=== PATIENT | male | born 1940 | race Caucasian/White ===

== ENCOUNTER 2020-07-14 10:48 | Inpatient (IN) | payer MEDICARE, OTHER ==
[2020-07-14] MEDS ORDERED: Nitroglycerin 0.4 MG Tab.SL SL PRN (17:11)
--- NOTE | 2020-07-14 17:47 | PCM.HP.2 ---
H&P History of Present Illness - General Date of Service: 07/14/20 Admit Problem/Dx: Admission Diagnosis/Problem Admission Diagnosis/Problem Coronary artery bypass grafting Source of Information: Patient, Old Records History Limitations: Reports: No Limitations - History of Present Illness Initial Comments - Free Text/Narative: This is a 71-year-old mac patient transfers from [facility] after he had double bypass surgery and valve replacement. He says he is doing well although he's had hiccups for the last 5 days. He says he thinks they use Thorazine and it has not helped. His chest pain is under control. He denies fevers, chills, Rales, shortness of breath, leg swelling or cough. - Related Data Allergies/Adverse Reactions: Allergies Allergy/AdvReac Type Severity Reaction Status Date / Time No Known Allergies Allergy Verified 01/30/14 19:14 Home Medications: Home Meds Ascorbic Acid [Vitamin C] 1,000 mg PO DAILY 01/30/14 [History] Aspirin 81 mg PO DAILY 01/30/14 [History] Fish Oil/[place]-3 Fatty Acids [Fish Oil 1,000 MG] 1 gm PO BID 01/30/14 [History] Insulin Glarg,Human.Rec.Analog [Lantus Solostar] 40 unit SQ DAILY 09/10/16 [History] metFORMIN [Glucophage] 500 mg PO BIDMEALS 09/10/16 [History] Albuterol [Ventolin HFA] 2 puff IH Q4H PRN 07/14/20 [History] Apixaban [Eliquis] 5 mg PO BID 07/14/20 [History] B12/Levomefolate Calcium/B-6 [Foltx Tablet] 1 tab PO DAILY 07/14/20 [History] Calcium Carbonate/Vitamin D3 [Calcium 600 + Vit D 200] 1 tab PO DAILY 07/14/20 [History] Digoxin 250 mcg PO DAILY 07/14/20 [History] Diltiazem [Cardizem CD] 120 mg PO DAILY 07/14/20 [History] Fluticasone Propionate [Flonase] 2 spray NASBOTH DAILY 07/14/20 [History] Furosemide [Lasix] 40 mg PO DAILY 07/14/20 [History] Insulin Aspart [NovoLOG] 10 units SUBCUT TIDMEALS 07/14/20 [History] Lactulose [Cephulac] 20 gm PO DAILY 07/14/20 [History] Metoprolol Succinate [Toprol Xl] 50 mg PO DAILY 07/14/20 [History] Nitroglycerin 0.4 mg SL Q5M PRN 07/14/20 [History] Pantoprazole Sodium [Protonix] 40 mg PO ACDINNER 07/14/20 [History] Potassium Chloride 40 meq PO ACDINNER 07/14/20 [History] Sennosides/Docusate Sodium [Senna-S] 2 ea PO BID 07/14/20 [History] atorvaSTATin [Lipitor] 40 mg PO WITHDINNER 07/14/20 [History] oxyCODONE 5 mg PO Q4H PRN 07/14/20 [History] polyethylene glycoL 3350 [MiraLAX] 17 gm PO BID 07/14/20 [History] Past Medical History HEENT History: Reports: Cataract, Other (See Below) Other HEENT History: Wears glasses. Has not had cataract surgery. Cardiovascular History: Reports: CAD, High Cholesterol, Hypertension, Stents Gastrointestinal History: Reports: GERD, Other (See Below) Other Gastrointestinal History: Uses Pepcid PRN. Takes Activia for regularity. Genitourinary History: Reports: Renal Calculus, Other (See Below) Other Genitourinary History: Recent kidney stone, treated with lithotripsy abd stent. This stent was then removed on 09-10-16. Also had a kidney stone 35 years ago. 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 Oncologic (Cancer) History: Reports: Lung, Other (See Below) Other Oncologic History: Recent chemotherapy and radiation for lung CA. Dermatologic History: Reports: Other (See Below) Other Dermatologic History: Moles on back. - Infectious Disease History Infectious Disease History: Reports: Chicken Pox, Rubella, Shingles Other Infectious Disease History: States he was place in Precautions following Triple A repair when, patient is uncertain if he had an infection or not. - Past Surgical History Cardiovascular Surgical History: Reports: AAA Repair, Coronary Artery Stent Respiratory Surgical History: Reports: Lung Biopsies, Other (See Below) Musculoskeletal Surgical History: Reports: Knee Replacement Social & Family History - Caffeine Use Caffeine Use: Reports: Coffee H&P Review of Systems - Review of Systems: Review Of Systems: See Below General: Reports: No Symptoms HEENT: Reports: No Symptoms Pulmonary: Reports: No Symptoms Cardiovascular: Reports: No Symptoms Gastrointestinal: Reports: Other (hiccups otherwise denied) Genitourinary: Reports: No Symptoms Musculoskeletal: Reports: No Symptoms Skin: Reports: No Symptoms Psychiatric: Reports: No Symptoms Neurological: Reports: No Symptoms Hematologic/Lymphatic: Reports: No Symptoms Immunologic: Reports: No Symptoms Exam - Exam Exam: See Below - Exam General: Alert, Oriented, Cooperative HEENT: PERRLA, Hearing Intact, Posterior Pharynx Clear, TMs Clear Neck: Supple, Trachea Midline Lungs: Clear to Auscultation, Normal Respiratory Effort. No: Crackles, Rales, Rhonchi Cardiovascular: Regular Rate, Regular Rhythm. No: Systolic Murmur GI/Abdominal Exam: Normal Bowel Sounds, Soft, Non-Tender, No Organomegaly, No Distention Back Exam: Normal Inspection, Full Range of Motion Extremities: Normal Inspection, Non-Tender, No Pedal Edema Skin: Warm Neurological: Normal Gait, Normal Speech Neuro Extensive - Mental Status: Alert, Oriented x3, Normal Mood/Affect, Normal Cognition Psychiatric: Alert, Normal Affect, Normal Mood - Problem List (1) S/P CABG x 2 SNOMED Code(s): 934170662, 263280726, 726876649 ICD Code: Z95.1 - PRESENCE OF AORTOCORONARY BYPASS GRAFT Status: Acute Current Visit: Yes (2) Physical deconditioning SNOMED Code(s): 23519078914046 ICD Code: R53.81 - OTHER MALAISE Status: Acute Current Visit: Yes (3) ASVD (arteriosclerotic vascular disease) SNOMED Code(s): 62463791 ICD Code: I70.90 - UNSPECIFIED ATHEROSCLEROSIS Status: Acute Current Visit: No (4) Diabetes mellitus SNOMED Code(s): 96774387 ICD Code: E11.9 - TYPE 2 DIABETES MELLITUS WITHOUT COMPLICATIONS Status: Acute Current Visit: No (5) Hiccups SNOMED Code(s): 79253750 ICD Code: R06.6 - HICCOUGH Status: Acute Current Visit: Yes Problem List Initiated/Reviewed/Updated: Yes Orders Last 24hrs: Active Orders 24 hr Category Date Time Status Patient Status [ADT] Routine ADT 07/14/20 16:35 Active Blood Glucose Check, Bedside [RC] QIDACANDBED Care 07/14/20 16:35 Active Oxygen Therapy [RC] PRN Care 07/14/20 16:35 Active RT Post Treatment Assessment [RC] Click to Edit Care 07/14/20 17:13 Active Up ad Shamika [RC] ASDIRECTED Care 07/14/20 16:35 Active VTE/DVT Education [RC] Per Unit Routine Care 07/14/20 16:35 Active Vital Signs [RC] Q4H Care 07/14/20 16:35 Active OT Evaluation and Treatment [CONS] Routine Cons 07/14/20 16:35 Active PT Evaluation and Treatment [CONS] Routine Cons 07/14/20 16:35 Active Consistent Carbohydrate Diet [DIET] Diet 07/14/20 Dinner Active Albuterol [Ventolin HFA] Med 07/14/20 17:11 Active 0 gm INH Q4H PRN Apixaban [Eliquis] Med 07/14/20 21:00 Active 5 mg PO BID Ascorbic Acid [Vitamin C] Med 07/15/20 09:00 Active 1,000 mg PO DAILY Aspirin Med 07/15/20 09:00 Active 81 mg PO DAILY Calcium Carbonate [Oyster Shell Calcium] Med 07/15/20 09:00 Active 500 mg PO DAILY Cyanocobalamin (Vitamin B12) [Vitamin B12] Med 07/15/20 09:00 Active 2,000 mcg PO DAILY Digoxin [Lanoxin] Med 07/15/20 09:00 Active 250 mcg PO DAILY Diltiazem [Cardizem CD] Med 07/15/20 09:00 Active 120 mg PO DAILY Docusate Sodium/Sennosides [Senna Plus] Med 07/14/20 21:00 Active 2 tab PO BID Fish Oil/[place]-3 Fatty Acids [Fish Oil] Med 07/14/20 21:00 Active 1 gm PO BID Fluticasone Propionate [Flonase] Med 07/15/20 09:00 Active 0 gm NASBOTH DAILY PRN Folic Acid Med 07/15/20 09:00 Active 2 mg PO DAILY Furosemide [Lasix] Med 07/15/20 09:00 Active 40 mg PO DAILY Insulin Glarg,Human.Rec.Analog [LantUS Solostar] Med 07/15/20 09:00 Active 40 units SUBCUT DAILY Lactulose [Cephulac] Med 07/15/20 09:00 Active 20 gm PO DAILY Metoprolol Succinate [Toprol XL] Med 07/15/20 09:00 Active 50 mg PO DAILY Nitroglycerin [Nitrostat] Med 07/14/20 17:11 Active 0.4 mg SL Q5M PRN Pantoprazole [ProTONIX] Med 07/14/20 17:30 Active 40 mg PO ACDINNER Potassium Chloride [Klor-Con M20] Med 07/14/20 17:30 Active 40 meq PO ACDINNER Vitamin B6-pyridOXINE Med 07/15/20 09:00 Active 25 mg PO DAILY atorvaSTATin [Lipitor] Med 07/14/20 18:00 Active 40 mg PO WITHDINNER metFORMIN [Glucophage] Med 07/14/20 18:00 Active 500 mg PO BIDMEALS oxyCODONE Med 07/14/20 17:11 Active 5 mg PO Q4H PRN polyethylene glycoL 3350 [MiraLAX] Med 07/14/20 21:00 Active 17 gm PO BID Resuscitation Status Routine Resus Stat 07/14/20 16:35 Ordered Medication Orders Albuterol (Ventolin Hfa) 0 gm INH Q4H PRN PRN Reason: cough/wheeze/short of breath Apixaban (Eliquis) 5 mg PO BID [facility] Ascorbic Acid (Vitamin C) 1,000 mg PO DAILY [facility] Aspirin (Aspirin) 81 mg PO DAILY [facility] Atorvastatin Calcium (Lipitor) 40 mg PO WITHDINNER [facility] Calcium Carbonate/Glycine (Oyster Shell Calcium) 500 mg PO DAILY [facility] Cyanocobalamin (Vitamin B12) 2,000 mcg PO DAILY [facility] Digoxin (Lanoxin) 250 mcg PO DAILY [facility] Diltiazem HCl (Cardizem Cd) 120 mg PO DAILY [facility] Fish Oil (Fish Oil) 1 gm PO BID [facility] Fluticasone Propionate (Flonase) 0 gm NASBOTH DAILY PRN PRN Reason: ALLERGIES Folic Acid (Folic Acid) 2 mg PO DAILY [facility] Furosemide (Lasix) 40 mg PO DAILY [facility] Insulin Glargine (Lantus Solostar) 40 units SUBCUT DAILY [facility] Lactulose (Cephulac) 20 gm PO DAILY [facility] Metformin HCl (Glucophage) 500 mg PO BIDMEALS [facility] Metoprolol Succinate (Toprol Xl) 50 mg PO DAILY [facility] Nitroglycerin (Nitrostat) 0.4 mg SL Q5M PRN PRN Reason: Chest Pain Oxycodone HCl (Oxycodone) 5 mg PO Q4H PRN PRN Reason: Pain Pantoprazole Sodium (Protonix) 40 mg PO ACDINNER [facility] Polyethylene Glycol (Miralax) 17 gm PO BID [facility] Potassium Chloride (Klor-Con M20) 40 meq PO ACDINNER [facility] Pyridoxine HCl (Vitamin B6-Pyridoxine) 25 mg PO DAILY [facility] Senna/Docusate Sodium (Senna Plus) 2 tab PO BID [facility] Assessment/Plan Comment:: 1. Admit to swing bed. 2. Full code per patient 3. Diabetes diet with Accu-Cheks 4 times a day until we know his blood sugars levels will be 4. Start his long-acting insulin and hold the short acting insulin. Restart metformin. 5. PT/OT 6. No labs needed, no x-rays needed 7. Up ad shamika. 8. Gabapentin 4 hiccups - Mortality Measure Prognosis:: Good
[2020-07-14] MEDS ORDERED: Non-Formulary Medication 1 Each (Insulin Aspart [Novolog] 10 UNITS) SUBCUT SCH (18:00)
[2020-07-14] MEDS: metFORMIN 500 MG Tab PO SCH (19:08)
[2020-07-14] MEDS: Potassium Chloride 20 MEQ Tab.ER PO SCH (19:09)
[2020-07-14] MEDS: atorvaSTATin 40 MG Tab PO SCH (19:09)
[2020-07-14] MEDS: Pantoprazole 40 MG Tab.CR PO SCH (19:09)
[2020-07-14] MEDS: oxyCODONE 5 MG Tab PO PRN (19:16)
[2020-07-14] MEDS: Fish Oil/Omega-3 Fatty Acids 1 Gm Cap PO SCH (20:15)
[2020-07-14] MEDS: Polyethylene Glycol 3350 Powder 17 GM Packet PO SCH (20:15)
[2020-07-14] MEDS: Apixaban 5 MG Tab PO SCH (20:15)
[2020-07-14] MEDS: Gabapentin 100 MG Cap PO SCH (21:16)
[2020-07-15] MEDS: oxyCODONE 5 MG Tab PO PRN ×5 (00:55→21:25)
[2020-07-15] MEDS: Albuterol 8 GM Inhaler INH PRN ×4 (05:32→21:25)
[2020-07-15] MEDS: Aspirin 81 MG Tab.Chew PO SCH (08:13)
[2020-07-15] MEDS: metFORMIN 500 MG Tab PO SCH ×2 (08:13→17:17)
[2020-07-15] MEDS: Diltiazem 120 MG Cap.CD PO SCH (08:14)
[2020-07-15] MEDS: Lactulose Soln 10 GM/15 ML 30 ML UD Cup PO SCH (08:14)
[2020-07-15] MEDS: Fish Oil/Omega-3 Fatty Acids 1 Gm Cap PO SCH ×2 (08:15→20:27)
[2020-07-15] MEDS: Apixaban 5 MG Tab PO SCH ×2 (08:15→20:27)
[2020-07-15] MEDS: Folic Acid 1 MG Tab PO SCH (08:15)
[2020-07-15] MEDS: Furosemide 40 MG Tab PO SCH (08:16)
[2020-07-15] MEDS: Polyethylene Glycol 3350 Powder 17 GM Packet PO SCH ×2 (08:16→20:26)
[2020-07-15] MEDS: Digoxin 125 MCG Tab PO SCH (08:16)
[2020-07-15] MEDS: Gabapentin 100 MG Cap PO SCH ×3 (08:17→20:26)
[2020-07-15] MEDS: Metoprolol Succinate 50 MG Tab.ER PO SCH (08:20)
[2020-07-15] MEDS: Ascorbic Acid 500 MG Tab PO SCH (08:21)
[2020-07-15] MEDS: Vitamin B6-pyridOXINE 100 MG Tab PO SCH (08:21)
[2020-07-15] MEDS: Cyanocobalamin (Vitamin B12) 1,000 MCG Tab PO SCH (08:21)
[2020-07-15] MEDS ORDERED: Insulin Glargine,Human Rec. Analog 100 Units/ML 3 ML Pen SUBCUT ONE (08:24)
[2020-07-15] MEDS: Calcium Carbonate 500 MG Tablet PO SCH (08:25)
[2020-07-15] MEDS: Insulin Glargine,Human Rec. Analog 100 Units/ML 3 ML Pen SUBCUT SCH (08:25)
[2020-07-15] MEDS ORDERED: Folic Acid 1 MG Tab PO SCH (09:00)
[2020-07-15] MEDS ORDERED: Vitamin B6-pyridOXINE 100 MG Tab PO SCH (09:00)
[2020-07-15] MEDS ORDERED: B12 PO SCH (09:00)
[2020-07-15] MEDS ORDERED: Cyanocobalamin (Vitamin B12) 1,000 MCG Tab PO SCH (09:00)
[2020-07-15] MEDS ORDERED: LEVOMEFOLATE CALCIUM PO SCH (09:00)
[2020-07-15] MEDS ORDERED: Fluticasone Propionate Nasal Spray 16 GM Bottle NASBOTH PRN (09:00)
[2020-07-15] MEDS ORDERED: B6 PO SCH (09:00)
[2020-07-15] MEDS: Potassium Chloride 20 MEQ Tab.ER PO SCH (17:16)
[2020-07-15] MEDS: atorvaSTATin 40 MG Tab PO SCH (17:16)
[2020-07-15] MEDS: Pantoprazole 40 MG Tab.CR PO SCH (17:16)
[2020-07-16] MEDS: oxyCODONE 5 MG Tab PO PRN ×5 (01:28→20:29)
[2020-07-16] MEDS: Albuterol 8 GM Inhaler INH PRN ×3 (01:28→23:10)
--- NOTE | 2020-07-16 07:57 | PCM.PN ---
- General Info Date of Service: 07/16/20 Admission Dx/Problem (Free Text): Patient states he is doing well. Has a little bit chest pain when he coughs. Denies shortness breath, wheezing, fevers, chills still has some hiccups - Patient Data Vitals - Most Recent: Last Vital Signs Temp 97.1 F 07/15/20 05:21 Pulse 95 07/15/20 08:20 Resp 18 07/15/20 05:21 BP 113/56 L 07/15/20 08:20 Pulse Ox 94 L 07/15/20 05:21 Weight - Most Recent: 243 lb 3 oz Lab Results Last 24 Hours: Laboratory Results - last 24 hr 07/15/20 07/15/20 07/15/20 Range/Units 11:18 17:19 20:37 POC Glucose 195 H 153 H 187 H (74-100) mg/dL Med Orders - Current: Current Medications Albuterol (Ventolin Hfa) 0 gm INH Q4H PRN PRN Reason: cough/wheeze/short of breath Last Admin: 07/16/20 06:17 Dose: 2 puff Documented by: Apixaban (Eliquis) 5 mg PO BID [facility] Last Admin: 07/15/20 20:27 Dose: 5 mg Documented by: Ascorbic Acid (Vitamin C) 1,000 mg PO DAILY [facility] Last Admin: 07/15/20 08:21 Dose: 1,000 mg Documented by: Aspirin (Aspirin) 81 mg PO DAILY [facility] Last Admin: 07/15/20 08:13 Dose: 81 mg Documented by: Atorvastatin Calcium (Lipitor) 40 mg PO WITHDINNER [facility] Last Admin: 07/15/20 17:16 Dose: 40 mg Documented by: Calcium Carbonate/Glycine (Oyster Shell Calcium) 500 mg PO DAILY [facility] Last Admin: 07/15/20 08:25 Dose: 500 mg Documented by: Cyanocobalamin (Vitamin B12) 2,000 mcg PO DAILY [facility] Last Admin: 07/15/20 08:21 Dose: 2,000 mcg Documented by: Digoxin (Lanoxin) 250 mcg PO DAILY [facility] Last Admin: 07/15/20 08:16 Dose: 250 mcg Documented by: Diltiazem HCl (Cardizem Cd) 120 mg PO DAILY [facility] Last Admin: 07/15/20 08:14 Dose: 120 mg Documented by: Fish Oil (Fish Oil) 1 gm PO BID [facility] Last Admin: 07/15/20 20:27 Dose: 1 gm Documented by: Fluticasone Propionate (Flonase) 0 gm NASBOTH DAILY PRN PRN Reason: ALLERGIES Folic Acid (Folic Acid) 2 mg PO DAILY [facility] Last Admin: 07/15/20 08:15 Dose: 2 mg Documented by: Furosemide (Lasix) 40 mg PO DAILY [facility] Last Admin: 07/15/20 08:16 Dose: 40 mg Documented by: Gabapentin (Neurontin) 100 mg PO TID [facility] Last Admin: 07/15/20 20:26 Dose: 100 mg Documented by: Insulin Glargine (Lantus Solostar) 40 units SUBCUT DAILY [facility] Last Admin: 07/15/20 08:25 Dose: 40 unit Documented by: Lactulose (Cephulac) 20 gm PO DAILY [facility] Last Admin: 07/15/20 08:14 Dose: 20 gm Documented by: Metformin HCl (Glucophage) 500 mg PO BIDMEALS [facility] Last Admin: 07/15/20 17:17 Dose: 500 mg Documented by: Metoprolol Succinate (Toprol Xl) 50 mg PO DAILY [facility] Last Admin: 07/15/20 08:20 Dose: 50 mg Documented by: Nitroglycerin (Nitrostat) 0.4 mg SL Q5M PRN PRN Reason: Chest Pain Oxycodone HCl (Oxycodone) 5 mg PO Q4H PRN PRN Reason: Pain Last Admin: 07/16/20 06:16 Dose: 5 mg Documented by: Pantoprazole Sodium (Protonix) 40 mg PO ACDINNER [facility] Last Admin: 07/15/20 17:16 Dose: 40 mg Documented by: Polyethylene Glycol (Miralax) 17 gm PO BID [facility] Last Admin: 07/15/20 20:26 Dose: 17 gm Documented by: Potassium Chloride (Klor-Con M20) 40 meq PO ACDINNER [facility] Last Admin: 07/15/20 17:16 Dose: 40 meq Documented by: Pyridoxine HCl (Vitamin B6-Pyridoxine) 25 mg PO DAILY [facility] Last Admin: 07/15/20 08:21 Dose: 25 mg Documented by: Senna/Docusate Sodium (Senna Plus) 2 tab PO BID [facility] Last Admin: 07/15/20 20:26 Dose: 2 tab Documented by: - Exam General: Alert, Oriented, Cooperative Lungs: Clear to Auscultation, Normal Respiratory Effort Cardiovascular: Regular Rate, Regular Rhythm, No Murmurs Extremities: No Pedal Edema Skin: Other (Chest wound healing nicely) Sepsis Event Note - Evaluation Sepsis Screening Result: No Definite Risk - Problem List & Annotations (1) S/P CABG x 2 SNOMED Code(s): 110261349, 722490457, 539328885 Code(s): Z95.1 - PRESENCE OF AORTOCORONARY BYPASS GRAFT Status: Acute Current Visit: Yes (2) Physical deconditioning SNOMED Code(s): 71611842095558 Code(s): R53.81 - OTHER MALAISE Status: Acute Current Visit: Yes (3) ASVD (arteriosclerotic vascular disease) SNOMED Code(s): 49122054 Code(s): I70.90 - UNSPECIFIED ATHEROSCLEROSIS Status: Acute Current Visit: No (4) Diabetes mellitus SNOMED Code(s): 98817116 Code(s): E11.9 - TYPE 2 DIABETES MELLITUS WITHOUT COMPLICATIONS Status: Acute Current Visit: No (5) Hiccups SNOMED Code(s): 16042085 Code(s): R06.6 - HICCOUGH Status: Acute Current Visit: Yes - Problem List Review Problem List Initiated/Reviewed/Updated: Yes - My Orders Last 24 Hours: My Active Orders 07/15/20 09:00 Ascorbic Acid [Vitamin C] 1,000 mg PO DAILY Aspirin 81 mg PO DAILY Calcium Carbonate [Oyster Shell Calcium] 500 mg PO DAILY Cyanocobalamin (Vitamin B12) [Vitamin B12] 2,000 mcg PO DAILY Digoxin [Lanoxin] 250 mcg PO DAILY Diltiazem [Cardizem CD] 120 mg PO DAILY Fluticasone Propionate [Flonase] 0 gm NASBOTH DAILY PRN Folic Acid 2 mg PO DAILY Furosemide [Lasix] 40 mg PO DAILY Insulin Glarg,Human.Rec.Analog [LantUS Solostar] 40 units SUBCUT DAILY Lactulose [Cephulac] 20 gm PO DAILY Metoprolol Succinate [Toprol XL] 50 mg PO DAILY Vitamin B6-pyridOXINE 25 mg PO DAILY - Plan Plan:: 1. Continue current care.
[2020-07-16] MEDS: metFORMIN 500 MG Tab PO SCH ×2 (09:16→17:39)
[2020-07-16] MEDS: Diltiazem 120 MG Cap.CD PO SCH (09:16)
[2020-07-16] MEDS: Aspirin 81 MG Tab.Chew PO SCH (09:16)
[2020-07-16] MEDS: Apixaban 5 MG Tab PO SCH ×2 (09:17→20:22)
[2020-07-16] MEDS: Fish Oil/Omega-3 Fatty Acids 1 Gm Cap PO SCH ×2 (09:17→20:23)
[2020-07-16] MEDS: Folic Acid 1 MG Tab PO SCH (09:17)
[2020-07-16] MEDS: Lactulose Soln 10 GM/15 ML 30 ML UD Cup PO SCH (09:17)
[2020-07-16] MEDS: Polyethylene Glycol 3350 Powder 17 GM Packet PO SCH ×2 (09:18→20:23)
[2020-07-16] MEDS: Digoxin 125 MCG Tab PO SCH (09:18)
[2020-07-16] MEDS: Furosemide 40 MG Tab PO SCH (09:18)
[2020-07-16] MEDS: Metoprolol Succinate 50 MG Tab.ER PO SCH (09:19)
[2020-07-16] MEDS: Cyanocobalamin (Vitamin B12) 1,000 MCG Tab PO SCH (09:20)
[2020-07-16] MEDS: Vitamin B6-pyridOXINE 100 MG Tab PO SCH (09:20)
[2020-07-16] MEDS: Ascorbic Acid 500 MG Tab PO SCH (09:21)
[2020-07-16] MEDS: Insulin Glargine,Human Rec. Analog 100 Units/ML 3 ML Pen SUBCUT SCH (09:21)
[2020-07-16] MEDS: Calcium Carbonate 500 MG Tablet PO SCH (09:33)
[2020-07-16] MEDS: Gabapentin 100 MG Cap PO SCH ×3 (09:33→20:29)
[2020-07-16] MEDS: Pantoprazole 40 MG Tab.CR PO SCH (17:39)
[2020-07-16] MEDS: atorvaSTATin 40 MG Tab PO SCH (17:40)
[2020-07-16] MEDS: Potassium Chloride 20 MEQ Tab.ER PO SCH (17:43)
[2020-07-17] MEDS: oxyCODONE 5 MG Tab PO PRN ×4 (02:47→20:41)
[2020-07-17] MEDS: Albuterol 8 GM Inhaler INH PRN ×2 (05:20→21:39)
[2020-07-17] MEDS: Aspirin 81 MG Tab.Chew PO SCH (08:29)
[2020-07-17] MEDS: Diltiazem 120 MG Cap.CD PO SCH (08:29)
[2020-07-17] MEDS: Fish Oil/Omega-3 Fatty Acids 1 Gm Cap PO SCH ×2 (08:31→20:39)
[2020-07-17] MEDS: Apixaban 5 MG Tab PO SCH ×2 (08:31→20:39)
[2020-07-17] MEDS: Polyethylene Glycol 3350 Powder 17 GM Packet PO SCH ×2 (08:31→20:40)
[2020-07-17] MEDS: Folic Acid 1 MG Tab PO SCH (08:31)
[2020-07-17] MEDS: Digoxin 125 MCG Tab PO SCH (08:32)
[2020-07-17] MEDS: Furosemide 40 MG Tab PO SCH (08:32)
[2020-07-17] MEDS: metFORMIN 500 MG Tab PO SCH ×2 (08:33→17:54)
[2020-07-17] MEDS: Cyanocobalamin (Vitamin B12) 1,000 MCG Tab PO SCH (08:34)
[2020-07-17] MEDS: Ascorbic Acid 500 MG Tab PO SCH (08:36)
[2020-07-17] MEDS: Vitamin B6-pyridOXINE 100 MG Tab PO SCH (08:36)
[2020-07-17] MEDS: Gabapentin 100 MG Cap PO SCH ×3 (08:45→20:40)
[2020-07-17] MEDS: Metoprolol Succinate 50 MG Tab.ER PO SCH (08:50)
[2020-07-17] MEDS: Lactulose Soln 10 GM/15 ML 30 ML UD Cup PO SCH (08:51)
[2020-07-17] MEDS: Insulin Glargine,Human Rec. Analog 100 Units/ML 3 ML Pen SUBCUT SCH (08:51)
[2020-07-17] MEDS: Calcium Carbonate 500 MG Tablet PO SCH (09:08)
[2020-07-17] MEDS: Pantoprazole 40 MG Tab.CR PO SCH (17:54)
[2020-07-17] MEDS: Potassium Chloride 20 MEQ Tab.ER PO SCH (17:56)
[2020-07-17] MEDS: atorvaSTATin 40 MG Tab PO SCH (18:08)
[2020-07-18] MEDS: oxyCODONE 5 MG Tab PO PRN ×4 (03:50→21:31)
--- NOTE | 2020-07-18 08:24 | PCM.PN ---
- General Info Date of Service: 07/18/20 Admission Dx/Problem (Free Text): Patient states she's having increasing swelling in his legs. Hospital but shortness of breath. This morning he had a cough with clear phlegm. He has no fevers, chills. - Patient Data Vitals - Most Recent: Last Vital Signs Temp 98.1 F 07/17/20 08:00 Pulse 77 07/17/20 14:18 Resp 20 07/17/20 14:18 BP 132/74 07/17/20 14:18 Pulse Ox 93 L 07/18/20 03:55 Weight - Most Recent: 243 lb 8 oz Lab Results Last 24 Hours: Laboratory Results - last 24 hr 07/17/20 07/17/20 07/17/20 Range/Units 11:39 16:54 20:34 POC Glucose 110 H 112 H 189 H (74-100) mg/dL Med Orders - Current: Current Medications Albuterol (Ventolin Hfa) 0 gm INH Q4H PRN PRN Reason: cough/wheeze/short of breath Last Admin: 07/17/20 21:39 Dose: 2 puff Documented by: Apixaban (Eliquis) 5 mg PO BID [facility] Last Admin: 07/17/20 20:39 Dose: 5 mg Documented by: Ascorbic Acid (Vitamin C) 1,000 mg PO DAILY [facility] Last Admin: 07/17/20 08:36 Dose: 1,000 mg Documented by: Aspirin (Aspirin) 81 mg PO DAILY [facility] Last Admin: 07/17/20 08:29 Dose: 81 mg Documented by: Atorvastatin Calcium (Lipitor) 40 mg PO WITHDINNER [facility] Last Admin: 07/17/20 18:08 Dose: 40 mg Documented by: Calcium Carbonate/Glycine (Oyster Shell Calcium) 500 mg PO DAILY [facility] Last Admin: 07/17/20 09:08 Dose: 500 mg Documented by: Cyanocobalamin (Vitamin B12) 2,000 mcg PO DAILY [facility] Last Admin: 07/17/20 08:34 Dose: 2,000 mcg Documented by: Digoxin (Lanoxin) 250 mcg PO DAILY [facility] Diltiazem HCl (Cardizem Cd) 120 mg PO DAILY [facility] Last Admin: 07/17/20 08:29 Dose: 120 mg Documented by: Fish Oil (Fish Oil) 1 gm PO BID [facility] Last Admin: 07/17/20 20:39 Dose: 1 gm Documented by: Fluticasone Propionate (Flonase) 0 gm NASBOTH DAILY PRN PRN Reason: ALLERGIES Folic Acid (Folic Acid) 2 mg PO DAILY [facility] Last Admin: 07/17/20 08:31 Dose: 2 mg Documented by: Furosemide (Lasix) 40 mg PO BID [facility] Gabapentin (Neurontin) 100 mg PO TID [facility] Last Admin: 07/17/20 20:40 Dose: 100 mg Documented by: Insulin Glargine (Lantus Solostar) 40 units SUBCUT DAILY [facility] Last Admin: 07/17/20 08:51 Dose: 40 unit Documented by: Lactulose (Cephulac) 20 gm PO DAILY [facility] Last Admin: 07/17/20 08:51 Dose: 20 gm Documented by: Metformin HCl (Glucophage) 500 mg PO BIDMEALS [facility] Last Admin: 07/17/20 17:54 Dose: 500 mg Documented by: Metoprolol Succinate (Toprol Xl) 50 mg PO DAILY [facility] Last Admin: 07/17/20 08:50 Dose: 50 mg Documented by: Nitroglycerin (Nitrostat) 0.4 mg SL Q5M PRN PRN Reason: Chest Pain Oxycodone HCl (Oxycodone) 5 mg PO Q4H PRN PRN Reason: Pain Last Admin: 07/18/20 03:50 Dose: 5 mg Documented by: Pantoprazole Sodium (Protonix) 40 mg PO ACDINNER [facility] Last Admin: 07/17/20 17:54 Dose: 40 mg Documented by: Polyethylene Glycol (Miralax) 17 gm PO BID [facility] Last Admin: 07/17/20 20:40 Dose: 17 gm Documented by: Potassium Chloride (Klor-Con M20) 40 meq PO ACDINNER [facility] Last Admin: 07/17/20 17:56 Dose: 40 meq Documented by: Pyridoxine HCl (Vitamin B6-Pyridoxine) 25 mg PO DAILY [facility] Last Admin: 07/17/20 08:36 Dose: 25 mg Documented by: Senna/Docusate Sodium (Senna Plus) 2 tab PO BID [facility] Last Admin: 07/17/20 20:41 Dose: Not Given Documented by: Discontinued Medications Digoxin (Lanoxin) 250 mcg PO DAILY [facility] Last Admin: 07/17/20 08:32 Dose: 250 mcg Documented by: Furosemide (Lasix) 40 mg PO DAILY [facility] Last Admin: 07/17/20 08:32 Dose: 40 mg Documented by: - Exam General: Alert, Oriented Lungs: Normal Respiratory Effort, Decreased Breath Sounds. No: Crackles, Rales, Rhonchi Cardiovascular: Regular Rate, Regular Rhythm, No Murmurs Extremities: Pedal Edema Sepsis Event Note - Evaluation Sepsis Screening Result: No Definite Risk - Focused Exam Vital Signs: Vital Signs Pulse Ox 07/18/20 03:55 93 L - Problem List & Annotations (1) S/P CABG x 2 SNOMED Code(s): 839645113, 815006858, 637026595 Code(s): Z95.1 - PRESENCE OF AORTOCORONARY BYPASS GRAFT Status: Acute Current Visit: Yes (2) Physical deconditioning SNOMED Code(s): 32529845578410 Code(s): R53.81 - OTHER MALAISE Status: Acute Current Visit: Yes (3) ASVD (arteriosclerotic vascular disease) SNOMED Code(s): 76847956 Code(s): I70.90 - UNSPECIFIED ATHEROSCLEROSIS Status: Acute Current Visit: No (4) Diabetes mellitus SNOMED Code(s): 98813291 Code(s): E11.9 - TYPE 2 DIABETES MELLITUS WITHOUT COMPLICATIONS Status: Acute Current Visit: No (5) Hiccups SNOMED Code(s): 87909483 Code(s): R06.6 - HICCOUGH Status: Acute Current Visit: Yes (6) Peripheral edema SNOMED Code(s): 776311570 Code(s): R60.9 - EDEMA, UNSPECIFIED Status: Acute Current Visit: Yes - Problem List Review Problem List Initiated/Reviewed/Updated: Yes - My Orders Last 24 Hours: My Active Orders 07/18/20 08:22 CXR [Chest 2V] [CR] Routine CBC WITH AUTO DIFF [HEME] Routine 07/18/20 09:00 Digoxin [Lanoxin] 250 mcg PO DAILY Furosemide [Lasix] 40 mg PO BID - Plan Plan:: 1. Increase the Lasix to twice a day. 2. Check CBC and chest x-ray today.
[2020-07-18] MEDS: metFORMIN 500 MG Tab PO SCH ×2 (09:00→17:00)
[2020-07-18] MEDS: Aspirin 81 MG Tab.Chew PO SCH (09:31)
[2020-07-18] MEDS: Diltiazem 120 MG Cap.CD PO SCH (09:32)
[2020-07-18] MEDS: Lactulose Soln 10 GM/15 ML 30 ML UD Cup PO SCH (09:32)
[2020-07-18] MEDS: Apixaban 5 MG Tab PO SCH ×2 (09:33→21:29)
[2020-07-18] MEDS: Fish Oil/Omega-3 Fatty Acids 1 Gm Cap PO SCH ×2 (09:33→21:29)
[2020-07-18] MEDS: Folic Acid 1 MG Tab PO SCH (09:33)
[2020-07-18] MEDS: Insulin Glargine,Human Rec. Analog 100 Units/ML 3 ML Pen SUBCUT SCH (09:34)
[2020-07-18] MEDS: Digoxin 250 MCG Tab PO SCH (09:34)
[2020-07-18] MEDS: Polyethylene Glycol 3350 Powder 17 GM Packet PO SCH ×2 (09:36→21:29)
[2020-07-18] MEDS: Furosemide 40 MG Tab PO SCH ×2 (09:36→13:11)
[2020-07-18] MEDS: Gabapentin 100 MG Cap PO SCH ×3 (09:38→21:29)
[2020-07-18] MEDS: Calcium Carbonate 500 MG Tablet PO SCH (09:40)
[2020-07-18] MEDS: Metoprolol Succinate 50 MG Tab.ER PO SCH (09:42)
[2020-07-18] MEDS: Cyanocobalamin (Vitamin B12) 1,000 MCG Tab PO SCH (09:43)
[2020-07-18] MEDS: Vitamin B6-pyridOXINE 100 MG Tab PO SCH (09:44)
[2020-07-18] MEDS: Ascorbic Acid 500 MG Tab PO SCH (09:44)
--- NOTE | 2020-07-18 11:32 | CR ---
INDICATION: Short of breath/history of double bypass and valve replacement 07/06/20. CHEST, 1 VIEW: A single, frontal view of the chest was obtained 07/18/20 and compared with 09/10/16. The heart appears markedly enlarged compared with the previous examination. The aorta is tortuous with calcification in the arch. There is interval median sternotomy. Pleural parenchymal changes are noted at the left lung base, which may simply be on the basis of postsurgical change, although pneumonia and pleuritis is difficult to exclude. Linear densities in the right midlung field may represent thickening of the minor fissure and/or atelectasis. The lungs appear to be somewhat hyperaerated raising question of obstructive airway disease - probable COPD. Slightly prominent pulmonary vasculature in the upper lung kolb may represent a mild or early CHF additionally. IMPRESSION: 1. Pleural parenchymal changes at the left lung base may simply be on the basis of postsurgical, although pneumonia and pleuritis cannot be excluded. 2. Probable atelectatic changes in the right mid-lung field. 3. Heart is increased in size with post median sternotomy change compared with the previous study. 4. Slightly prominent pulmonary vasculature in the upper lung kolb may represent a mild or early CHF additionally. MTDD
[2020-07-18] MEDS: Acetaminophen 500 MG Tab PO SCH ×2 (13:11→21:30)
[2020-07-18] MEDS: Albuterol 8 GM Inhaler INH PRN (16:51)
[2020-07-18] MEDS: Pantoprazole 40 MG Tab.CR PO SCH (16:55)
[2020-07-18] MEDS: Potassium Chloride 20 MEQ Tab.ER PO SCH (16:56)
[2020-07-18] MEDS: atorvaSTATin 40 MG Tab PO SCH (17:00)
[2020-07-18] MEDS: Albuterol 0.083% 2.5 MG/3 ML Neb Soln NEB PRN (21:30)
[2020-07-19] MEDS: oxyCODONE 5 MG Tab PO PRN ×3 (05:54→19:24)
[2020-07-19] MEDS: Acetaminophen 500 MG Tab PO SCH ×3 (05:54→21:17)
[2020-07-19] MEDS: Vitamin B6-pyridOXINE 100 MG Tab PO SCH (08:36)
[2020-07-19] MEDS: metFORMIN 500 MG Tab PO SCH ×2 (08:36→18:25)
[2020-07-19] MEDS: Furosemide 40 MG Tab PO SCH ×2 (08:37→13:25)
[2020-07-19] MEDS: Aspirin 81 MG Tab.Chew PO SCH (08:39)
[2020-07-19] MEDS: Diltiazem 120 MG Cap.CD PO SCH (08:39)
[2020-07-19] MEDS: Fish Oil/Omega-3 Fatty Acids 1 Gm Cap PO SCH ×2 (08:40→21:16)
[2020-07-19] MEDS: Apixaban 5 MG Tab PO SCH ×2 (08:40→21:16)
[2020-07-19] MEDS: Insulin Glargine,Human Rec. Analog 100 Units/ML 3 ML Pen SUBCUT SCH (08:40)
[2020-07-19] MEDS: Digoxin 250 MCG Tab PO SCH (08:40)
[2020-07-19] MEDS: Folic Acid 1 MG Tab PO SCH (08:40)
[2020-07-19] MEDS: Metoprolol Succinate 50 MG Tab.ER PO SCH (08:41)
[2020-07-19] MEDS: Cyanocobalamin (Vitamin B12) 1,000 MCG Tab PO SCH (08:41)
[2020-07-19] MEDS: Ascorbic Acid 500 MG Tab PO SCH (08:41)
[2020-07-19] MEDS: Calcium Carbonate 500 MG Tablet PO SCH (08:41)
[2020-07-19] MEDS: Gabapentin 100 MG Cap PO SCH ×3 (08:54→21:22)
[2020-07-19] MEDS: Polyethylene Glycol 3350 Powder 17 GM Packet PO SCH ×2 (08:56→21:17)
[2020-07-19] MEDS: Albuterol 0.083% 2.5 MG/3 ML Neb Soln NEB PRN (09:01)
[2020-07-19] MEDS: Lactulose Soln 10 GM/15 ML 30 ML UD Cup PO SCH (09:14)
[2020-07-19] MEDS: Pantoprazole 40 MG Tab.CR PO SCH (16:31)
[2020-07-19] MEDS: Potassium Chloride 20 MEQ Tab.ER PO SCH (16:31)
[2020-07-19] MEDS: atorvaSTATin 40 MG Tab PO SCH (18:25)
[2020-07-20] MEDS: oxyCODONE 5 MG Tab PO PRN ×6 (01:47→23:54)
[2020-07-20] MEDS: Acetaminophen 500 MG Tab PO SCH ×3 (06:03→21:34)
[2020-07-20] MEDS: metFORMIN 500 MG Tab PO SCH ×2 (08:50→17:50)
[2020-07-20] MEDS: Furosemide 40 MG Tab PO SCH ×2 (08:51→14:25)
[2020-07-20] MEDS: Diltiazem 120 MG Cap.CD PO SCH (08:51)
[2020-07-20] MEDS: Aspirin 81 MG Tab.Chew PO SCH (08:51)
[2020-07-20] MEDS: Digoxin 250 MCG Tab PO SCH (08:52)
[2020-07-20] MEDS: Apixaban 5 MG Tab PO SCH ×2 (08:52→20:28)
[2020-07-20] MEDS: Lactulose Soln 10 GM/15 ML 30 ML UD Cup PO SCH (08:52)
[2020-07-20] MEDS: Folic Acid 1 MG Tab PO SCH (08:52)
[2020-07-20] MEDS: Fish Oil/Omega-3 Fatty Acids 1 Gm Cap PO SCH ×2 (08:52→20:28)
[2020-07-20] MEDS: Polyethylene Glycol 3350 Powder 17 GM Packet PO SCH ×2 (08:54→20:31)
[2020-07-20] MEDS: Cyanocobalamin (Vitamin B12) 1,000 MCG Tab PO SCH (08:54)
[2020-07-20] MEDS: Metoprolol Succinate 50 MG Tab.ER PO SCH (08:54)
[2020-07-20] MEDS: Calcium Carbonate 500 MG Tablet PO SCH (08:54)
[2020-07-20] MEDS: Vitamin B6-pyridOXINE 100 MG Tab PO SCH (08:55)
[2020-07-20] MEDS: Ascorbic Acid 500 MG Tab PO SCH (08:55)
[2020-07-20] MEDS: Insulin Glargine,Human Rec. Analog 100 Units/ML 3 ML Pen SUBCUT SCH (08:57)
[2020-07-20] MEDS ORDERED: FLU VACC QS2020-21(6MOS UP)/PF 60 MCG/0.5 ML SYRINGE IM ONE (09:00)
[2020-07-20] MEDS: Albuterol 0.083% 2.5 MG/3 ML Neb Soln NEB PRN (09:59)
[2020-07-20] MEDS: atorvaSTATin 40 MG Tab PO SCH (17:50)
[2020-07-20] MEDS: Potassium Chloride 20 MEQ Tab.ER PO SCH (17:50)
[2020-07-20] MEDS: Pantoprazole 40 MG Tab.CR PO SCH (17:50)
[2020-07-21] MEDS: Acetaminophen 500 MG Tab PO SCH ×3 (06:48→21:35)
[2020-07-21] MEDS: oxyCODONE 5 MG Tab PO PRN (07:59)
[2020-07-21] MEDS: metFORMIN 500 MG Tab PO SCH ×2 (08:00→17:04)
[2020-07-21] MEDS: Furosemide 40 MG Tab PO SCH (08:00)
[2020-07-21] MEDS: Aspirin 81 MG Tab.Chew PO SCH (08:00)
[2020-07-21] MEDS: Lactulose Soln 10 GM/15 ML 30 ML UD Cup PO SCH (08:01)
[2020-07-21] MEDS: Apixaban 5 MG Tab PO SCH ×2 (08:01→21:34)
[2020-07-21] MEDS: Folic Acid 1 MG Tab PO SCH (08:01)
[2020-07-21] MEDS: Diltiazem 120 MG Cap.CD PO SCH (08:01)
[2020-07-21] MEDS: Fish Oil/Omega-3 Fatty Acids 1 Gm Cap PO SCH ×2 (08:01→21:34)
[2020-07-21] MEDS: Ascorbic Acid 500 MG Tab PO SCH (08:02)
[2020-07-21] MEDS: Calcium Carbonate 500 MG Tablet PO SCH (08:02)
[2020-07-21] MEDS: Digoxin 250 MCG Tab PO SCH (08:02)
[2020-07-21] MEDS: Vitamin B6-pyridOXINE 100 MG Tab PO SCH (08:02)
[2020-07-21] MEDS: Metoprolol Succinate 50 MG Tab.ER PO SCH (08:03)
[2020-07-21] MEDS: Cyanocobalamin (Vitamin B12) 1,000 MCG Tab PO SCH (08:03)
[2020-07-21] MEDS: Polyethylene Glycol 3350 Powder 17 GM Packet PO SCH ×2 (08:04→21:35)
[2020-07-21] MEDS: Insulin Glargine,Human Rec. Analog 100 Units/ML 3 ML Pen SUBCUT SCH (08:09)
[2020-07-21] MEDS: Albuterol 0.083% 2.5 MG/3 ML Neb Soln NEB PRN (08:11)
[2020-07-21] MEDS ORDERED: Metolazone 2.5 MG Tab PO ONE (10:27)
[2020-07-21] MEDS: Acetaminophen/HYDROcodone 325-5 MG Tab PO PRN ×2 (11:29→21:33)
--- NOTE | 2020-07-21 13:20 | PN ---
DATE SEEN: 07/21/2020 HISTORY: Mr. Russ is a 79-year-old man who was admitted to swing bed at [place] on 07/14/2020, after a double bypass and valve replacement surgery at [facility]. He has been recuperating slowly and feeling fairly well, however, he had a poor night last night. He states that at midnight he went to bed as usual, and then at 0300 hours, he woke up with a severe cough. He said he coughed almost continuously until 0600 hours. He is not sure if this was productive or dry cough. He did not have chest pain with it, but he does feel short of breath, and he states he is still having leg swelling that was not present prior to his heart surgery. He is not having fever, chills, sweats, URI symptoms, or other symptoms of acute infection. He has been up ambulating while on room air. He, however, has had slow progress with this in therapy because of generalized weakness, chest discomfort, and coughing with shortness of breath. PHYSICAL EXAMINATION: GENERAL: He is alert and a good historian. HEENT: Clear. LUNGS: Have good air movement to the bases. No focal consolidation is heard. HEART: Regular, tachycardic at about 100 per minute. ABDOMEN: Soft and nontender. EXTREMITIES: Show 1 to 2+ pitting edema to the upper tibias. ASSESSMENT: 1. Postoperative bypass and valve replacement and heart valve surgery. 2. Congestive heart failure. 3. Cough, question infectious. 4. Mild postoperative anemia. PLAN: We will check a chest x-ray today and get labs in the morning and increase his diuretic. Follow up after the x-ray. /[id number] DEEJAY/JOSE
[2020-07-21] MEDS: Furosemide 80 MG Tab PO SCH (14:03)
--- NOTE | 2020-07-21 14:53 | CR ---
INDICATION: Cough. CHEST, TWO VIEWS: An AP upright view of the chest was obtained and compared with 07/18/20 and 09/10/16. There are again noted irregular linear densities in the right mid lung field, essentially unchanged from 07/18/20 and possibly representing areas of atelectasis - subsegmental. Additionally, there is increased density behind the heart and blunting of the costophrenic angle on the left, compatible with pneumonia and pleuritis in that area. This appears similar to the previous study. The heart is enlarged in appearance with post median sternotomy change. The aorta is calcified in the arch area. Very minimal blunting of the right costophrenic angle is now seen. IMPRESSION: 1. Pleuroparenchymal changes at the left lung base which may be slightly progressive and could represent pneumonia and pleuritis, and/or postsurgical changes. 2. Changes in the right mid lung field unchanged from the previous study and possibly on the basis of subsegmental atelectasis. 3. ASHD with cardiomegaly and post median sternotomy change. 4. Minimal pleural effusion on the right now seen. 5. No definite evidence of CHF seen at this time. MTDD
[2020-07-21] MEDS: atorvaSTATin 40 MG Tab PO SCH (17:04)
[2020-07-21] MEDS: Potassium Chloride 20 MEQ Tab.ER PO SCH (17:05)
[2020-07-21] MEDS: Pantoprazole 40 MG Tab.CR PO SCH (17:05)
[2020-07-22] MEDS: Acetaminophen/HYDROcodone 325-5 MG Tab PO PRN (05:09)
[2020-07-22] MEDS: Acetaminophen 500 MG Tab PO SCH ×3 (06:44→21:32)
[2020-07-22] MEDS: metFORMIN 500 MG Tab PO SCH ×2 (09:45→17:32)
[2020-07-22] MEDS: Diltiazem 120 MG Cap.CD PO SCH (09:46)
[2020-07-22] MEDS: Aspirin 81 MG Tab.Chew PO SCH (09:46)
[2020-07-22] MEDS: Digoxin 250 MCG Tab PO SCH (09:47)
[2020-07-22] MEDS: Fish Oil/Omega-3 Fatty Acids 1 Gm Cap PO SCH ×2 (09:47→20:34)
[2020-07-22] MEDS: Apixaban 5 MG Tab PO SCH ×2 (09:47→20:34)
[2020-07-22] MEDS: Polyethylene Glycol 3350 Powder 17 GM Packet PO SCH (09:49)
[2020-07-22] MEDS: Metoprolol Succinate 50 MG Tab.ER PO SCH (09:49)
[2020-07-22] MEDS ORDERED: Insulin Glargine,Human Rec. Analog 100 Units/ML 3 ML Pen SUBCUT ONE (09:51)
[2020-07-22] MEDS: Furosemide 80 MG Tab PO SCH ×2 (09:52→13:52)
[2020-07-22] MEDS: Insulin Glargine,Human Rec. Analog 100 Units/ML 3 ML Pen SUBCUT SCH (09:53)
[2020-07-22] MEDS: Potassium Chloride 20 MEQ Tab.ER PO SCH (17:32)
[2020-07-22] MEDS: Pantoprazole 40 MG Tab.CR PO SCH (17:32)
[2020-07-22] MEDS: atorvaSTATin 40 MG Tab PO SCH (17:33)
[2020-07-23] MEDS: Acetaminophen 500 MG Tab PO SCH ×3 (06:16→21:52)
[2020-07-23] MEDS: Metoprolol Succinate 50 MG Tab.ER PO SCH (09:20)
[2020-07-23] MEDS: Furosemide 80 MG Tab PO SCH ×2 (09:20→13:46)
[2020-07-23] MEDS: Aspirin 81 MG Tab.Chew PO SCH (09:20)
[2020-07-23] MEDS: metFORMIN 500 MG Tab PO SCH ×2 (09:20→17:13)
[2020-07-23] MEDS: Apixaban 5 MG Tab PO SCH ×2 (09:21→20:49)
[2020-07-23] MEDS: Fish Oil/Omega-3 Fatty Acids 1 Gm Cap PO SCH ×2 (09:21→20:49)
[2020-07-23] MEDS: Diltiazem 120 MG Cap.CD PO SCH (09:21)
[2020-07-23] MEDS: Polyethylene Glycol 3350 Powder 17 GM Packet PO SCH (09:22)
[2020-07-23] MEDS: Digoxin 250 MCG Tab PO SCH (09:22)
[2020-07-23] MEDS: Insulin Glargine,Human Rec. Analog 100 Units/ML 3 ML Pen SUBCUT SCH (09:23)
[2020-07-23] MEDS: Cefdinir 300 MG Cap PO SCH ×2 (09:47→20:49)
[2020-07-23] MEDS: Codeine/guaiFENesin 10-100 MG/5 ML Syrup 5 ML Cup PO PRN ×2 (09:51→17:13)
[2020-07-23] MEDS: Potassium Chloride 20 MEQ Tab.ER PO SCH (17:13)
[2020-07-23] MEDS: Pantoprazole 40 MG Tab.CR PO SCH (17:13)
[2020-07-23] MEDS: atorvaSTATin 40 MG Tab PO SCH (17:13)
[2020-07-24] MEDS: Codeine/guaiFENesin 10-100 MG/5 ML Syrup 5 ML Cup PO PRN ×2 (01:13→20:42)
[2020-07-24] MEDS: Acetaminophen 500 MG Tab PO SCH ×2 (06:25→15:00)
[2020-07-24] MEDS: Cefdinir 300 MG Cap PO SCH ×2 (09:05→20:22)
[2020-07-24] MEDS: Polyethylene Glycol 3350 Powder 17 GM Packet PO SCH (09:05)
[2020-07-24] MEDS: Metoprolol Succinate 50 MG Tab.ER PO SCH (09:06)
[2020-07-24] MEDS: Digoxin 250 MCG Tab PO SCH (09:06)
[2020-07-24] MEDS: Furosemide 40 MG Tab PO SCH ×2 (09:07→15:00)
[2020-07-24] MEDS: Diltiazem 120 MG Cap.CD PO SCH (09:07)
[2020-07-24] MEDS: Aspirin 81 MG Tab.Chew PO SCH (09:07)
[2020-07-24] MEDS: Apixaban 5 MG Tab PO SCH ×2 (09:07→20:22)
[2020-07-24] MEDS: Fish Oil/Omega-3 Fatty Acids 1 Gm Cap PO SCH ×2 (09:07→20:22)
[2020-07-24] MEDS: Insulin Glargine,Human Rec. Analog 100 Units/ML 3 ML Pen SUBCUT SCH (09:08)
[2020-07-24] MEDS: metFORMIN 500 MG Tab PO SCH ×2 (09:08→17:54)
--- NOTE | 2020-07-24 09:32 | PN ---
DATE SEEN: 07/22/2020 HISTORY: Antwon is a 79-year-old man, who was admitted to swing bed following CABG and valve replacement surgery. He had been quite weak. In addition to that he has had cough, dyspnea, and exacerbation of congestive heart failure. He diuresed approximately 8 pounds since yesterday and states his breathing is better, but he still coughed quite a bit during the night. PHYSICAL EXAMINATION: GENERAL: He is alert, comfortable, and he looks better this morning. VITAL SIGNS: Weight is 234 pounds today, compared to 243 on July 19. SKIN: No rash. LUNGS: Clear to the right base, slightly diminished at the left base. No focal consolidation is heard. HEART: Regular with a soft systolic murmur. No gallop. ABDOMEN: Soft and nontender. EXTREMITIES: 1+ edema to the mid tibias. LABORATORY DATA: Hemoglobin 9.5, potassium 3.4. BNP 3522. Digoxin level 1.3. ASSESSMENT: 1. Congestive heart failure. 2. Bronchitis. 3. Cough, question respiratory infection. 4. Chronic obstructive pulmonary disease. 5. Hyperlipidemia. PLAN: We will continue his current level of diuresis medications, collect a sputum sample, increase his activity as tolerated, and follow closely. /[id number] DEEJAY/JOSE
[2020-07-24] MEDS: Albuterol 8 GM Inhaler INH PRN (09:59)
--- NOTE | 2020-07-24 11:23 | PN ---
DATE SEEN: 07/23/2020 HISTORY: Antwon is a 79-year-old man who was admitted to swing bed at [facility] after 2-vessel coronary artery bypass graft and heart valve replacement. He has been stable, but recuperating slowly. He developed slightly worsening shortness of breath and clinical evidence of congestive heart failure. Over the past 72 hours, he has been diuresed of 12 pounds. His breathing has improved, but he complains of a cough that has gone on ever since his radiation treatments were completed several years ago. He states he feels well this morning. He had a fair night. He was able to eat almost all of his breakfast and he ate all of his supper last night. PHYSICAL EXAMINATION: GENERAL: He is alert and comfortable. VITAL SIGNS: Weight 231 pounds 8 ounces. Temp 98.2, blood pressure 124/68, O2 saturation 94% on 1 L nasal cannula. HEENT: Clear. LUNGS: Clear in the upper lung kolb. He has diminished breath sounds at the left base. No other focal consolidation. HEART: Slightly irregular. There is a soft systolic murmur over the precordium. ABDOMEN: Soft, nontender. EXTREMITIES: Essentially no edema of the shins today. LABORATORY DATA: Labs today show improvement of his potassium to 3.6, BUN 26, creatinine 1.2, this is stable. Digoxin level was therapeutic at 1.3 yesterday. ASSESSMENT: 1. Congestive heart failure. 2. Chronic cough, post radiation for bilateral lung cancer. 3. Atrial fibrillation on Eliquis, digoxin, and diltiazem. 4. Type 2 diabetes. 5. Hypokalemia. 6. Normocytic anemia. PLAN: We will continue his current level of diuresis. A sputum sample has been sent and has come back Gram-negative rods. I will start him on cefdinir b.i.d. for bronchitis and await the full culture and sensitivity, and continue his rehab and anticipate discharge to home once strong enough. /[id number] DEEJAY/JOSE
--- NOTE | 2020-07-24 11:50 | PN ---
DATE SEEN: 07/24/2020 HISTORY: Antwon is a 79-year-old who underwent 2-vessel coronary artery bypass graft and valve placement at [facility]. He was sent to swing bed here on July 14 for recuperation. He has been slowly improving. He has had congestive heart failure and has been diuresed of approximately 10 pounds. He has a chronic cough. Sputum sample came back with few E. coli, and chest x-ray has shown basilar heavy markings. He is comfortable and in no pain, and he is up walking in the halls. PHYSICAL EXAMINATION: GENERAL: He is alert, comfortable, and a good historian. VITAL SIGNS: Blood pressure 124/68, pulse 77 and regular, respirations normal, O2 saturation 94% on 1 L. Weight 229 pounds 8 ounces. SKIN: Clear without rash. LUNGS: Clear in the upper lung kolb. He has diminished sounds at the left base with vesicular breath sounds, lower one-third on the left. HEART: Regular with a soft systolic murmur. ABDOMEN: Soft. EXTREMITIES: Show no edema at the ankles. ASSESSMENT: 1. Postop bypass and valvular surgery with congestive heart failure and left pleural effusion. 2. Chronic cough post bilateral lung cancer radiation and possible superimposed bronchitis. 3. Type 2 diabetes, on insulin. 4. Anemia, normocytic. PLAN: We will continue his current medications. Continue therapy. He has a followup Cardiothoracic Surgery appointment in 2 days, and we will hope for discharge in 3 to 4 days. /[id number] DEEJAY/JOSE
[2020-07-24] MEDS: Pantoprazole 40 MG Tab.CR PO SCH (17:54)
[2020-07-24] MEDS: Potassium Chloride 20 MEQ Tab.ER PO SCH (17:54)
[2020-07-24] MEDS: atorvaSTATin 40 MG Tab PO SCH (17:55)
[2020-07-25] MEDS: Acetaminophen 500 MG Tab PO SCH ×4 (01:41→21:02)
[2020-07-25] MEDS: Codeine/guaiFENesin 10-100 MG/5 ML Syrup 5 ML Cup PO PRN ×2 (05:56→21:02)
[2020-07-25 08:12] LABS: IRON BIND.CAP.(TIBC) 221 ug/dL (250-450); IRON SATURATION 15 % (15-55); IRON, SERUM 33 ug/dL (38-169); UIBC 188 ug/dL (111-343)
[2020-07-25] MEDS: metFORMIN 500 MG Tab PO SCH ×2 (08:33→17:25)
[2020-07-25] MEDS: Diltiazem 120 MG Cap.CD PO SCH (08:35)
[2020-07-25] MEDS: Furosemide 40 MG Tab PO SCH ×2 (08:35→14:00)
[2020-07-25] MEDS: Apixaban 5 MG Tab PO SCH ×2 (08:36→20:37)
[2020-07-25] MEDS: Fish Oil/Omega-3 Fatty Acids 1 Gm Cap PO SCH ×2 (08:36→20:37)
[2020-07-25] MEDS: Aspirin 81 MG Tab.Chew PO SCH (08:36)
[2020-07-25] MEDS: Digoxin 250 MCG Tab PO SCH (08:37)
[2020-07-25] MEDS: Polyethylene Glycol 3350 Powder 17 GM Packet PO SCH (08:37)
[2020-07-25] MEDS: Insulin Glargine,Human Rec. Analog 100 Units/ML 3 ML Pen SUBCUT SCH (08:37)
[2020-07-25] MEDS: Cefdinir 300 MG Cap PO SCH ×2 (08:39→20:37)
[2020-07-25] MEDS: Metoprolol Succinate 50 MG Tab.ER PO SCH (08:39)
[2020-07-25] MEDS: Ferrous Sulfate 325 MG Tab PO SCH ×2 (11:28→17:31)
[2020-07-25] MEDS: Pantoprazole 40 MG Tab.CR PO SCH (17:13)
[2020-07-25] MEDS: Potassium Chloride 20 MEQ Tab.ER PO SCH (17:18)
[2020-07-25] MEDS: atorvaSTATin 40 MG Tab PO SCH (17:30)
[2020-07-26] MEDS: Acetaminophen 500 MG Tab PO SCH ×2 (06:42→13:13)
[2020-07-26] MEDS: metFORMIN 500 MG Tab PO SCH (07:45)
[2020-07-26] MEDS: Ferrous Sulfate 325 MG Tab PO SCH (07:45)
[2020-07-26] MEDS: Furosemide 40 MG Tab PO SCH ×2 (07:46→13:12)
[2020-07-26 07:54] VITALS: BP 128/60; PULSE 85
[2020-07-26] MEDS: Aspirin 81 MG Tab.Chew PO SCH (08:33)
[2020-07-26] MEDS: Diltiazem 120 MG Cap.CD PO SCH (08:34)
[2020-07-26] MEDS: Apixaban 5 MG Tab PO SCH (08:34)
[2020-07-26] MEDS: Digoxin 250 MCG Tab PO SCH (08:34)
[2020-07-26] MEDS: Insulin Glargine,Human Rec. Analog 100 Units/ML 3 ML Pen SUBCUT SCH (08:34)
[2020-07-26] MEDS: Fish Oil/Omega-3 Fatty Acids 1 Gm Cap PO SCH (08:34)
[2020-07-26] MEDS: Cefdinir 300 MG Cap PO SCH (08:36)
[2020-07-26] MEDS: Polyethylene Glycol 3350 Powder 17 GM Packet PO SCH (08:36)
[2020-07-26] MEDS: Metoprolol Succinate 50 MG Tab.ER PO SCH (08:37)
[2020-07-26] MEDS ORDERED: FLU VACC QS2020-21(6MOS UP)/PF 60 MCG/0.5 ML SYRINGE IM ONE (10:00)
[2020-07-26] MEDS: Codeine/guaiFENesin 10-100 MG/5 ML Syrup 5 ML Cup PO PRN (12:19)
--- NOTE | 2020-07-26 12:48 | DISCH ---
DISCHARGE DATE: 07/26/2020 HISTORY: Antwon is a 79-year-old man who underwent 2-vessel coronary artery bypass graft and bioprosthetic aortic valve replacement at [facility] on 07/06/2020. Mr. Russ was sent to [facility] for rehab postop where he has remained for the past 2 weeks. He has steadily improved during his time here. He did have an episode of congestive heart failure that required additional diuresis. He has received physical therapy and is now up walking in the halls. He has also had a prolonged cough that he dates back to his radiation for lung cancer a couple of years ago. Sputum sample was collected showing E coli, and he is taking oral cefdinir for this. PHYSICAL EXAMINATION: GENERAL: Mr. Russ is examined in his room prior to discharge. He is comfortable. He is dyspneic after a walk in the halls, but O2 saturation 91%. His O2 saturation overnight has dropped down into the 83% range. HEENT: Showed his mouth to be dry. LUNGS: Clear with diminished breath sounds at the left base. HEART: Irregular in atrial fib pattern with a soft systolic murmur. ABDOMEN: Soft, nontender. EXTREMITIES: Showed essentially no peripheral edema at the ankles. LABORATORY DATA: Laboratory done 07/23 included a hemoglobin of 9.5 with an MCV of 91, potassium 3.6, BUN 26, creatinine 1.2. Digoxin level 1.3 and Accu-Cheks have remained well controlled. He is discharged to home in stable condition. He has an appointment to see his cardiac surgeon for followup today. He is also scheduled to have a chest x-ray and laboratory studies done. We will do an EKG here prior to discharge that he can bring along with him to his appointments. MEDICATIONS: On discharge, 1. Potassium 40 mEq daily. 2. Toprol-XL 50 one daily. 3. Lactulose 20 g daily. 4. NovoLog 10 units t.i.d. before meals. 5. Furosemide 40 mg b.i.d. 6. Iron sulfate 325 mg b.i.d. 7. Senokot-S 1 daily. 8. Robitussin AC cough syrup 1 to 2 teaspoons every 6 hours p.r.n. cough. 9. Cefdinir 300 mg b.i.d. x5 more days for bronchitis. 10.Calcium with D3 at 600-200 one daily. 11.B12 with B6 vitamin 1 daily. 12.Vitamin C 1000 mg daily. 13.Eliquis 5 mg b.i.d. 14.Nitroglycerin p.r.n. 15.Metformin 500 mg b.i.d. 16.Lantus insulin 40 units at bedtime. He may adjust this back up toward his previous baseline of 54 units depending upon his a.m. sugars. 17.Flonase 2 sprays each naris daily. 18.Fish oil capsules 1 daily. 19.Cardizem CD 120 one daily. 20.Digoxin 250 mcg daily. 21.Atorvastatin 40 mg daily. 22.Aspirin 81 mg daily. 23.Albuterol HFA p.r.n. PLAN: He is to follow up with his provider, Flaquita Sierra, at in 2 weeks where he can follow up his anemia medications, labs, etc. He will check with his cardiac surgeon about starting cardiac rehab. Because of his nocturnal desaturation, we will provide him with oxygen 1-1/2 L/minute nasal cannula overnight. /[id number] DEEJAY/JOSE
== END 2020-07-26 13:30 | disposition home health service (06) | DRG 315 ==
LOC: FB.MS 16:15
PROVIDERS: ADMIT Family Medicine; ATTEND Family Medicine
DX: Z95.2 Presence of prosthetic heart valve (principal); J90 Pleural effusion, not elsewhere classified; C34.91 Malignant neoplasm of unspecified part of right bronchus or lung; C34.92 Malignant neoplasm of unspecified part of left bronchus or lung; Z95.1 Presence of aortocoronary bypass graft; R53.81 Other malaise; I70.90 Unspecified atherosclerosis; E11.9 Type 2 diabetes mellitus without complications; R06.6 Hiccough; D64.9 Anemia, unspecified; I50.9 Heart failure, unspecified; E87.6 Hypokalemia; I48.91 Unspecified atrial fibrillation; J44.9 Chronic obstructive pulmonary disease, unspecified; R05 Cough; I25.10 Atherosclerotic heart disease of native coronary artery without angina pectoris; E78.00 Pure hypercholesterolemia, unspecified; I11.0 Hypertensive heart disease with heart failure; K21.9 Gastro-esophageal reflux disease without esophagitis; Z96.659 Presence of unspecified artificial knee joint; Z79.82 Long term (current) use of aspirin; Z97.4 Presence of external hearing-aid; Z79.4 Long term (current) use of insulin; Z79.899 Other long term (current) drug therapy; Z95.5 Presence of coronary angioplasty implant and graft; Z87.442 Personal history of urinary calculi
CPT/HCPCS: 36415; 71045; 80053; 80069; 80162; 82607; 82728; 82962; 83540; 83550; 83880; 85025; 85045; 87070; 87077; 87186; 87205; 90686; 93005; 94150; 94640; 97110-GO; 97110-GP; 97116-GP; 97161-GP; 97165-GO; 97530-GO; 97530-GP; 97535-GO; A9270-GY; G0008; J1815-GY

== ENCOUNTER 2021-01-08 10:56 | Emergency (ER) | payer MEDICARE, OTHER ==
--- NOTE | 2021-01-08 11:13 | EDM.PDOC ---
ED HPI GENERAL MEDICAL PROBLEM - General Stated Complaint: RACING HEART Time Seen by Provider: 01/08/21 11:13 Source of Information: Reports: Patient History Limitations: Reports: No Limitations - History of Present Illness INITIAL COMMENTS - FREE TEXT/NARRATIVE: 80-year-old male who reports awoke yesterday morning with fast heart rate at 8 AM. He reports that he noted that it was 143 when he took his blood pressure. His blood pressure was 120 systolic range. He did not have any chest pain or shortness of breath at that time. He had no arm, neck or jaw pain. Did feel somewhat tired. He reports that he has had this happen in the past and on those occasions it has lasted for a variable period of time and sometimes for several hours and sometimes for an entire day but it has always gone back to a normal rate without any intervention. On those occasions in the past, he reports that he has had some chest heaviness and bilateral arm pain associated with this. He reports that his heart rate stayed in the 140 range all day yesterday. He had been told by his office technology instructor to take an extra Toprol 50 mg if his heart rate was greater than 120 for an hour and he did take that yesterday but it did not seem to affect his heart rate at all. He reports that his rate continued in the 140 range all night and when he tried to lay down for sleep last night he became short of breath and had to sit up in his recliner and his sleep was somewhat fitful through the night. This morning, he noted that his heart rate was still 140 and his blood pressure was 120 systolic. He called the cardiothoracic surgery clinic and was told to come to the emergency department for evaluation. He still has no chest pain. He rates his pain as a 0/10. In fact he has no pain. At rest, he does not have any shortness of breath. He does not feel weak or dizzy. There has been no nausea or vomiting. There are no other associated signs or symptoms. There are no other modifying factors. He does report that he had oatmeal and coffee for breakfast at approximately 8:30 AM today. Onset: Other (Yesterday at 8 a.m.) Duration: Constant Location: Reports: Other (No pain) Quality: Reports: Other (Not applicable.) Severity: Moderate Improves with: Reports: None Worsens with: Reports: None Context: Reports: Other (As above.) Associated Symptoms: Reports: Shortness of Breath (When lying down or with acti vity.) Treatments CIRCLE EDGER: Reports: Other Medication(s) (Took an extra metoprolol 50 mg orally yesterday with no relief.) - Related Data Allergies Allergy/AdvReac Type Severity Reaction Status Date / Time No Known Allergies Allergy Verified 01/30/14 19:14 Home Meds: Home Meds Ascorbic Acid [Vitamin C] 1,000 mg PO DAILY 01/30/14 [History] Aspirin 81 mg PO DAILY 01/30/14 [History] Fish Oil/Orange-3 Fatty Acids [Fish Oil 1,000 MG] 1 gm PO BID 01/30/14 [History] Insulin Glarg,Human.Rec.Analog [Lantus Solostar] 40 unit SQ DAILY 09/10/16 [History] metFORMIN [Glucophage] 500 mg PO BIDMEALS 09/10/16 [History] Albuterol [Ventolin HFA] 2 puff IH Q4H PRN 07/14/20 [History] B12/Levomefolate Calcium/B-6 [Foltx Tablet] 1 tab PO DAILY 07/14/20 [History] Calcium Carbonate/Vitamin D3 [Calcium 600 + Vit D 200] 1 tab PO DAILY 07/14/20 [History] Digoxin 250 mcg PO DAILY 07/14/20 [History] Fluticasone Propionate [Flonase] 2 spray NASBOTH DAILY 07/14/20 [History] Insulin Aspart [NovoLOG] 10 units SUBCUT TIDMEALS 07/14/20 [History] Lactulose [Cephulac] 20 gm PO DAILY 07/14/20 [History] Metoprolol Succinate [Toprol Xl] 50 mg PO DAILY 07/14/20 [History] Nitroglycerin 0.4 mg SL Q5M PRN 07/14/20 [History] Apixaban [Eliquis] 5 mg PO BID #60 tablet 07/26/20 [Rx] Cefdinir [Omnicef] 300 mg PO BID #10 cap 07/26/20 [Rx] Codeine/guaiFENesin [Robitussin AC] 5 ml PO Q6H PRN #180 ml 07/26/20 [Rx] Docusate Sodium/Sennosides [Senna Plus] 1 tab PO DAILY PRN #90 tablet 07/26/20 [Rx] Ferrous Sulfate 325 mg PO BIDMEALS #60 tablet 07/26/20 [Rx] Furosemide [Lasix] 40 mg PO BIDDIURETIC #60 tablet 07/26/20 [Rx] Potassium Chloride 40 meq PO ACDINNER #60 07/26/20 [Rx] Diltiazem [Cardizem] 120 mg PO DAILY #30 tab 07/27/20 [Rx] Rosuvastatin [Crestor] 10 mg PO DAILY #10 tab 07/27/20 [Rx] Past Medical History HEENT History: Reports: Cataract, Impaired Vision (Wears glasses) Cardiovascular History: Reports: Arrhythmia, CAD, Heart Valve Replacement, High Cholesterol, Hypertension, Stents Other Cardiovascular History: severe aortic stenosis, triple A repair, Afib with RVR, Ejection Fraction of 30-35% Respiratory History: Reports: Other (See Below) Other Respiratory History: Chronic smoker for 51 years, quit smoking October of 2015, Lung CA Gastrointestinal History: Reports: GERD Genitourinary History: Reports: Renal Calculus, Other (See Below) Other Genitourinary History: Recent kidney stone, treated with lithotripsy abd stent. This stent was then removed on 09-10-16. Also had a kidney stone 35 years ago. Endocrine/Metabolic History: Reports: Diabetes, Type II, IDDM Other Endocrine/Metabolic History: Insulin needs increased since receiving chemotherapy. Hematologic History: Reports: Anticoagulation Therapy Oncologic (Cancer) History: Reports: Lung - Infectious Disease History Infectious Disease History: Reports: Chicken Pox, Rubella, Shingles Other Infectious Disease History: States he was place in Precautions following Triple A repair when, patient is uncertain if he had an infection or not. - Past Surgical History Cardiovascular Surgical History: Reports: Coronary Artery Bypass, Coronary Artery Stent, Percutaneous Transluminal Angioplasty, Valve Replacement Respiratory Surgical History: Reports: Lung Biopsies Musculoskeletal Surgical History: Reports: Knee Replacement (Right total knee replacement) Social & Family History - Family History Cardiac: Reports: Hypertension, Other (See Below) Other Cardiac Family History: Cardiovascular Disease, Mother had [place] Musculoskeletal: Reports: Neck Pain, Chronic Other Musculoskeletal Family History: daughter has musculo-skeletal disease, Ra on Father side Neurological: Reports: CVA, Other (See Below) Other Neurological Family History: brother has mental retartdation. Endocrine/Metabolic: Reports: Other (See Below) Other Endocrine/Metabolic Family History: mother and maternal grandmother has diabetes. Other Oncologic Family History: brother and mother had cancer- unable to determine what kind. - Tobacco Use Tobacco Use Status *Q: Former Tobacco User (With smoking in 2016. Heavy smoker prior to this.) - Caffeine Use Caffeine Use: Reports: Coffee Other Caffeine Use: not since after CABG. - Alcohol Use Alcohol Use History: Yes Alcohol Use Frequency: Rarely - Living Situation & Occupation Living situation: Reports: Other () Occupation: Retired ED ROS GENERAL - Review of Systems Review Of Systems: See Below Constitutional: Reports: No Symptoms HEENT: Reports: No Symptoms Respiratory: Reports: Shortness of Breath (With activity and lying down.) Cardiovascular: Reports: Palpitations, Other (Fast heart rate) GI/Abdominal: Reports: No Symptoms : Reports: No Symptoms Musculoskeletal: Reports: No Symptoms Skin: Reports: No Symptoms Neurological: Reports: No Symptoms Psychiatric: Reports: No Symptoms Hematologic/Lymphatic: Reports: Easy Bleeding (Patient is chronically anticoagulated with Eliquis.) Immunologic: Reports: No Symptoms ED EXAM, GENERAL - Physical Exam Exam: See Below Exam Limited By: No Limitations General Appearance: Alert, WD/WN, No Apparent Distress Eye Exam: Bilateral Eye: EOMI, Normal Inspection Ears: Normal External Exam, Hearing Grossly Normal Ear Exam: Bilateral Ear: Auricle Normal Nose: Normal Inspection, Normal Mucosa, No Blood Throat/Mouth: Normal Inspection, Normal Oropharynx, Normal Voice, No Airway Compromise, Other (Poor dentition.) Head: Atraumatic, Normocephalic Neck: Normal Inspection, Supple, Non-Tender, Full Range of Motion Respiratory/Chest: No Respiratory Distress, Lungs Clear, Normal Breath Sounds, No Accessory Muscle Use, Chest Non-Tender Cardiovascular: Normal Peripheral Pulses, No JVD, No Murmur, No Rub, Tachycardia Peripheral Pulses: 2+: Radial (L), Radial (R), Dorsalis Pedis (L), Dorsalis Pedis (R) GI/Abdominal: Normal Bowel Sounds, Soft, Non-Tender, No Mass Back Exam: Normal Inspection, Full Range of Motion Extremities: Normal Inspection, Normal Range of Motion, Non-Tender, No Pedal Edema, Normal Capillary Refill Neurological: Alert, Oriented, CN II-XII Intact, Normal Cognition, No Motor/Sensory Deficits Psychiatric: Normal Affect Skin Exam: Warm, Dry, Intact, Normal Color, No Rash #1 Interpretation EKG Date: 01/08/21 Time: 11:12 Rhythm: Other (Tachycardia, undetermined rhythm) Rate (Beats/Min): 146 [place]: LAD-Left [place] Deviation P-Wave: Present QRS: LBBB QT: Prolonged (Prolonged QTc.) Comparison: Change From Previous EKG (Compared to an EKG performed on 07/26/2020, the patient now has a tachycardia. On that EKG, he did have a left bundle- branch block.) EKG Interpretation Comments: I am unsure of the underlying rhythm but I suspect that it is atrial flutter with a 2 to 1 block. Course - Vital Signs Last Recorded V/S: Last Vital Signs Temp 36.9 C 01/08/21 10:57 Pulse 144 H 01/08/21 10:57 Resp 18 01/08/21 10:57 BP 127/73 01/08/21 10:57 Pulse Ox - Orders/Labs/Meds Orders: Active Orders 24 hr Category Date Time Status EKG Documentation Completion [RC] ASDIRECTED Care 01/08/21 11:38 Active CORONAVIRUS COVID-19 LIZZ [MOLEC] Stat Lab 01/08/21 13:01 Received Sodium Chloride 0.9% [Normal Saline] 1,000 ml Med 01/08/21 13:30 Active IV ASDIRECTED Sodium Chloride 0.9% [Saline Flush] Med 01/08/21 11:36 Active 10 ml FLUSH ASDIRECTED PRN Peripheral IV Insertion Adult [OM.PC] Routine Oth 01/08/21 11:36 Ordered EKG 12 Lead [EK] Routine Ther 01/08/21 11:36 Ordered Medication Orders Sodium Chloride (Normal Saline) 1,000 mls @ 100 mls/hr IV ASDIRECTED [place] Last Admin: 01/08/21 13:35 Dose: 100 mls/hr Documented by: [email or web address] Sodium Chloride (Sodium Chloride 0.9% 10 Ml Syringe) 10 ml FLUSH ASDIRECTED PRN PRN Reason: Keep Vein Open Labs: Laboratory Tests 01/08/21 01/08/21 01/08/21 Range/Units 11:20 11:20 11:20 WBC 7.7 (3.2-10.1) x10-3/uL RBC 4.66 (3.90-5.90) x10(6)uL Hgb 14.5 (12.9-17.7) g/dL Hct 44.4 (38.3-50.1) % MCV 95.3 (80.8-98.7) fL MCH 31.0 (27.0-33.3) pg MCHC 32.5 (28.7-35.3) g/dL RDW 15.8 H (12.4-15.0) % Plt Count 240 (117-477) x10(3)uL MPV 8.6 (6.7-11.0) fL Neut % (Auto) 75.9 H (40.3-71.8) % Lymph % (Auto) 16.4 (15.8-45.3) % [place] % (Auto) 5.3 L (5.5-15.2) % Eos % (Auto) 1.5 (0.1-6.8) % Baso % (Auto) 0.9 (0.3-3.8) % Neut # (Auto) 5.8 (1.7-6.9) x10-3/uL Lymph # (Auto) 1.3 (0.5-4.5) x10-3/uL [place] # (Auto) 0.4 (0.0-1.2) x10-3/uL Eos # (Auto) 0.1 (0.0-0.6) x10-3/uL Baso # (Auto) 0.1 (0.0-0.3) x10-3/uL Sodium 137 (135-145) mmol/L Potassium 4.5 (3.5-5.3) mmol/L Chloride 100 (100-110) mmol/L Carbon Dioxide 27 (21-32) mmol/L BUN 29 H (7-18) mg/dL Creatinine 1.2 (0.70-1.30) mg/dL Est Cr Clr Drug Dosing 51.54 mL/min Estimated GFR (MDRD) 58 L (>60) BUN/Creatinine Ratio 24.2 H (9-20) Glucose 158 H (80-116) mg/dL Calcium 9.0 (8.6-10.2) mg/dL Magnesium 1.9 (1.8-2.5) mg/dL Total Bilirubin 0.6 (0.1-1.3) mg/dL AST 15 D (5-25) IU/L ALT 36 D (12-36) U/L Alkaline Phosphatase 40 L (56-112) IU/L Troponin I 24.0 (4.0-60.3) pg/mL NT-Pro-B Natriuret Pep 6111 H* (<=450) pg/mL Total Protein 7.3 (6.0-8.0) g/dL Albumin 3.9 (3.2-4.6) g/dL Globulin 3.4 g/dL Albumin/Globulin Ratio 1.2 Meds: Medications Generic Name Dose Route Start Last Admin Trade Name Freq PRN Reason Stop Dose Admin Sodium Chloride 1,000 mls @ 100 mls/hr 01/08/21 13:30 01/08/21 13:35 Normal Saline IV 100 mls/hr ASDIRECTED [place]LAND Administration Sodium Chloride 10 ml 01/08/21 11:36 Sodium Chloride 0.9% 10 Ml Syringe FLUSH ASDIRECTED PRN Keep Vein Open - Radiology Interpretation Free Text/Narrative:: Portable chest x-ray shows no evidence of congestive heart failure. He does have residual right upper lobe density is unchanged. The left lower lobe haziness that was present on a previous x-ray has resolved. - Re-Assessments/Exams Free Text/Narrative Re-Assessment/Exam: 01/08/21 11:40: The patient did have a few episodes where his heart rate slowed down into the 80s and 90 range transiently and at this time on the rhythm monitoring strip, it was noted that he had an underlying rhythm that was atrial flutter. He remained hemodynamically and neurologically stable during these episodes. This rate only lasted for a brief period of time and has went back up to the 140 range. Laboratory tests are pending at this point. A chest x-ray is pending at this point. I will be discussing the patient's case with the office technology instructor at [facility]. 01/08/21 12:35: The patient's blood tests are all reassuringly normal except for an elevated proBNP at 6111. His troponin was normal. His electrolytes were normal. His chest x-ray showed no acute disease. He has remained hemodynamically and neurologically stable. His pulse rate is still in the 140s and his blood pressure has varied between 100-120 systolic range. His mentation has been unchanged as well. I discussed the patient's case with Dr. Geiger, office technology instructor at [facility] in [place], and she feels that the patient would need to be transferred to their facility because he will need cardioversion. She recommends no further therapy at this time. I will discuss the patient's case with the transfer doctor at [facility] in [place]. I will also discuss this with the patient. 01/08/21 12:45: I discussed this with the patient and he would be agreeable to transfer to [facility]. The patient will need to be transferred via ambulance ambulance service. I discussed the patient's case with Dr. Dominguez, intake physician at [facility], and he has agreed to accept the patient in transfer. A rapid Covid has been ordered. The patient is remaining hemodynamically and neurologically stable. We will continue close monitoring of the patient. Departure - Departure Time of Disposition: 13:48 Disposition: DC/Tfer to Acute Hospital 02 Reason for Transfer *Q: Other (Need for cardiology specially services that are not available at [facility] (cardioversion).) Condition: Fair (Stable) Clinical Impression: Atrial flutter with rapid ventricular response Referrals: Flaquita Sierra, TALENT ACQUISITION ASSISTANT [Primary Care Provider] - Sepsis Event Note (ED) - Focused Exam Vital Signs: Vital Signs Temp Pulse Resp BP 01/08/21 10:57 36.9 C 144 H 18 127/73 - My Orders Last 24 Hours: My Active Orders 01/08/21 11:36 Sodium Chloride 0.9% [Saline Flush] 10 ml FLUSH ASDIRECTED PRN Peripheral IV Insertion Adult [OM.PC] Routine EKG 12 Lead [EK] Routine 01/08/21 11:38 EKG Documentation Completion [RC] ASDIRECTED 01/08/21 13:01 CORONAVIRUS COVID-19 LIZZ [MOLEC] Stat 01/08/21 13:30 Sodium Chloride 0.9% [Normal Saline] 1,000 ml IV ASDIRECTED - Assessment/Plan Last 24 Hours: My Active Orders 01/08/21 11:36 Sodium Chloride 0.9% [Saline Flush] 10 ml FLUSH ASDIRECTED PRN Peripheral IV Insertion Adult [OM.PC] Routine EKG 12 Lead [EK] Routine 01/08/21 11:38 EKG Documentation Completion [RC] ASDIRECTED 01/08/21 13:01 CORONAVIRUS COVID-19 LIZZ [MOLEC] Stat 01/08/21 13:30 Sodium Chloride 0.9% [Normal Saline] 1,000 ml IV ASDIRECTED
[2021-01-08 11:34] VITALS: BP 127/73; PULSE 144
[2021-01-08] MEDS ORDERED: Sodium Chloride 0.9% 10 ML Syringe FLUSH PRN (11:36)
[2021-01-08] MEDS ORDERED: Sodium Chloride 0.9% 1,000 ML IV SCH (13:30)
--- NOTE | 2021-01-08 13:32 | CR ---
INDICATION: Fast heart rate, history of lung CA, two valve replacements, double bypass. CHEST ONE VIEW: AP portable upright view of the chest 01/08/21 was compared with 07/21/20 and 07/18/20. The heart did not appear grossly enlarged in this post median sternotomy patient. The aorta is tortuous with calcification in the arch. There is again noted some linear densities in the right mid lung field which may be fibrotic in nature with somewhat heavy markings in the lower lung field - left lower lobe again noted which may also be fibrotic in nature or possibly post surgical or post neoplastic treatment. A definite active infiltrate or effusion was not identified with clearing of most of the infiltrate seen at the left lower lobe on the previous study. Overlying EKG leads are noted. IMPRESSION: No definite acute process, but there are areas of increased density in the right mid lung field and left lower lobe which may be fibrotic in nature. The possibility of pneumonia in these areas is difficult to entirely exclude, however. MTDD
== END 2021-01-08 14:00 ==
LOC: FB.ED 10:56
DX: I48.92 Unspecified atrial flutter (principal); I44.7 Left bundle-branch block, unspecified; I25.10 Atherosclerotic heart disease of native coronary artery without angina pectoris; E78.00 Pure hypercholesterolemia, unspecified; I10 Essential (primary) hypertension; I48.91 Unspecified atrial fibrillation; E11.9 Type 2 diabetes mellitus without complications; Z87.891 Personal history of nicotine dependence; Z79.01 Long term (current) use of anticoagulants; Z79.82 Long term (current) use of aspirin; Z79.4 Long term (current) use of insulin; Z79.899 Other long term (current) drug therapy; Z20.822 Contact with and (suspected) exposure to COVID-19
CPT/HCPCS: 36415; 71045; 80053; 83735; 83880; 84484; 85025; 93005; 99285; J7030; U0002

== ENCOUNTER → 2022-07-30 | Day surgery (SDC) | payer MEDICARE, OTHER ==
[~2022-07-30] MED LIST: Lactated Ringers 1,000 ML IV SCH; acetaZOLAMIDE 500 MG Cap.ER PO ONE
== END ==
LOC: FB.SDS 07-30 08:42
PROVIDERS: ATTEND Ophthalmology
DX: H25.813 Combined forms of age-related cataract, bilateral (principal); H18.513 Endothelial corneal dystrophy, bilateral; H52.223 Regular astigmatism, bilateral; H43.813 Vitreous degeneration, bilateral; E11.9 Type 2 diabetes mellitus without complications; I48.91 Unspecified atrial fibrillation; I25.10 Atherosclerotic heart disease of native coronary artery without angina pectoris; I11.0 Hypertensive heart disease with heart failure; I50.9 Heart failure, unspecified; J44.9 Chronic obstructive pulmonary disease, unspecified; E78.5 Hyperlipidemia, unspecified; I44.7 Left bundle-branch block, unspecified; M19.90 Unspecified osteoarthritis, unspecified site; D64.9 Anemia, unspecified; Z79.899 Other long term (current) drug therapy; Z87.891 Personal history of nicotine dependence; Z79.84 Long term (current) use of oral hypoglycemic drugs; Z79.4 Long term (current) use of insulin; Z95.5 Presence of coronary angioplasty implant and graft; Z98.890 Other specified postprocedural states; Z79.82 Long term (current) use of aspirin
CPT/HCPCS: 82947; A9270-GY; J7120; V2632

== ENCOUNTER → 2022-08-13 | Day surgery (SDC) | payer MEDICARE, OTHER ==
[~2022-08-13] MED LIST changes: +Lactated Ringers 1,000 ML IV PRN; -Lactated Ringers 1,000 ML IV SCH; +Midazolam 1 MG/ML 2 ML SDV IVPUSH ONE; +Sodium Chloride 0.9% 10 ML Syringe FLUSH PRN; +fentaNYL 100 MCG/2 ML SDV IVPUSH ONE
[2022-08-13 12:11] VITALS: BP 105/64; PULSE 66
== END ==
LOC: FB.SDS 09:29
PROVIDERS: ATTEND Ophthalmology
DX: E11.36 Type 2 diabetes mellitus with diabetic cataract (principal); H25.813 Combined forms of age-related cataract, bilateral; H18.513 Endothelial corneal dystrophy, bilateral; H43.813 Vitreous degeneration, bilateral; H52.223 Regular astigmatism, bilateral; I48.91 Unspecified atrial fibrillation; J44.9 Chronic obstructive pulmonary disease, unspecified; I25.10 Atherosclerotic heart disease of native coronary artery without angina pectoris; E78.5 Hyperlipidemia, unspecified; I10 Essential (primary) hypertension; Z87.891 Personal history of nicotine dependence; Z98.890 Other specified postprocedural states; Z79.899 Other long term (current) drug therapy
CPT/HCPCS: 00142-QZ; 82947; A9270-GY; J2250; J3010; J3490; J7120; V2632

== ENCOUNTER 2023-06-05 11:39 | Emergency (ER) | payer MEDICARE, OTHER ==
[2023-06-05] MEDS ORDERED: Sodium Chloride 0.9% 10 ML Syringe FLUSH PRN (12:16)
[2023-06-05] MEDS ORDERED: Sodium Chloride 0.9% 500 ML IV ONE (12:26)
[2023-06-05 12:48] LABS: HEMATOCRIT 32.8 % (38.3-50.1); MEAN CORPUSCULAR HEMOGLOBIN 31.7 pg (27.0-33.3); MEAN CORPUSCULAR HGB CONC 33.5 g/dL (28.7-35.3); MEAN CORPUSCULAR VOLUME 94.5 fL (80.8-98.7); MEAN PLATELET VOLUME 8.3 fL (6.7-11.0); PLATELET COUNT,PLT 114 x10(3)uL (117-477); RED BLOOD CELL COUNT 3.47 x10(6)uL (3.90-5.90); RED CELL DISTRIBUTION WIDTH 16.7 % (12.4-15.0); WHITE BLOOD CELL COUNT,WBC 5.7 x10-3/uL (3.2-10.1)
[2023-06-05 12:54] LABS: BLOOD UREA NITROGEN,BUN 81 mg/dL (7-18); CALCIUM 8.5 mg/dL (8.6-10.2); CARBON DIOXIDE,CO2 29 mmol/L (21-32); CHLORIDE,CL 105 mmol/L (100-110); CREATININE 1.2 mg/dL (0.70-1.30); ESTIMATED GFR 61 mL/min (>60); GLUCOSE RANDOM 105 mg/dL (80-116); POTASSIUM,K 4.1 mmol/L (3.5-5.3); SODIUM,NA 140 mmol/L (135-145)
[2023-06-05 13:05] LABS: BILIRUBIN,URINE NEGATIVE (NEGATIVE); GLUCOSE,URINE 250 mg/dL (NORMAL); KETONES,URINE NEGATIVE (NEGATIVE); LEUKOCYTE ESTERASE,URINE NEGATIVE (NEGATIVE); NITRITE,URINE NEGATIVE (NEGATIVE); OCCULT BLOOD,URINE NEGATIVE (NEGATIVE); PROTEIN,URINE NEGATIVE (NEGATIVE); UROBILINOGEN,URINE NORMAL (NEGATIVE)
[2023-06-05 13:05] LABS: A/G RATIO 0.7; ALBUMIN 2.2 g/dL (3.2-4.6); ALKALINE PHOSPHATASE 67 IU/L (56-112); ASPARTATE AMNIOTRANSFERASE,AST 81 IU/L (5-25); BILIRUBIN TOTAL 0.4 mg/dL (0.1-1.3); MAGNESIUM 2.1 mg/dL (1.8-2.5); PROTEIN TOTAL,TP 5.3 g/dL (6.0-8.0)
[2023-06-05 13:08] LABS: APPEARANCE,URINE CLEAR (CLEAR); COLOR,URINE YELLOW (YELLOW); RBC,URINE 0-5 (0-5); SQUAMOUS EPITHELIAL CELLS,UR RARE (NS,R,O); WBC,URINE 0-5 (0-5)
[2023-06-05 13:08] LABS: BUN/CREATININE RATIO 67.5 (9-20)
[2023-06-05 13:09] LABS: ALANINE AMINOTRANSFERASE,ALT 379 U/L (12-36); TROPONIN I 47.5 pg/mL (4.0-60.3)
[2023-06-05] MEDS ORDERED: Pantoprazole 40 MG Vial IVPUSH ONE (13:21)
[2023-06-05 13:23] LABS: EOSINOPHILS PERCENT MAN 3 % (0-5); LYMPHOCYTES PERCENT MAN 25 % (13-37); MONOCYTES PERCENT MAN 2 % (4-12); SEG NEUTROPHILS PERCENT MAN 70 % (46-82)
[2023-06-05 13:24] LABS: ANISOCYTOSIS FEW
[2023-06-05 13:48] VITALS: BP 115/77; PULSE 76
== END 2023-06-05 14:09 ==
LOC: FB.ED 11:39
DX: K92.2 Gastrointestinal hemorrhage, unspecified (principal); D69.6 Thrombocytopenia, unspecified; I95.1 Orthostatic hypotension; I25.10 Atherosclerotic heart disease of native coronary artery without angina pectoris; E78.00 Pure hypercholesterolemia, unspecified; K21.9 Gastro-esophageal reflux disease without esophagitis; E11.9 Type 2 diabetes mellitus without complications; Z79.82 Long term (current) use of aspirin; Z79.4 Long term (current) use of insulin; Z79.01 Long term (current) use of anticoagulants; Z79.899 Other long term (current) drug therapy
CPT/HCPCS: 36410; 36415; 80053; 81001; 82272; 83735; 83880; 84484; 85025; 86850; 86900; 86901; 93005; 93010; 96374; 99285; C9113; J3490; J7040

== ENCOUNTER 2023-09-30 10:40 | Emergency (ER) | payer MEDICARE, OTHER ==
[2023-09-30 13:05] LABS: HEMATOCRIT 36.4 % (38.3-50.1); HEMOGLOBIN 11.5 g/dL (12.9-17.7); MEAN CORPUSCULAR HEMOGLOBIN 26.7 pg (27.0-33.3); MEAN CORPUSCULAR HGB CONC 31.6 g/dL (28.7-35.3); MEAN CORPUSCULAR VOLUME 84.4 fL (80.8-98.7); MEAN PLATELET VOLUME 7.3 fL (6.7-11.0); PLATELET COUNT,PLT 350 x10(3)uL (117-477); RED BLOOD CELL COUNT 4.32 x10(6)uL (3.90-5.90); RED CELL DISTRIBUTION WIDTH 18.6 % (12.4-15.0); WHITE BLOOD CELL COUNT,WBC 6.2 x10-3/uL (3.2-10.1)
[2023-09-30 13:07] LABS: BASE EXCESS VENOUS,POC 6 mmol/L (-2 - 3+); PCO2 VENOUS,POC 59 mmHg (41-51); PH VENOUS,POC 7.37 pH Units (7.32-7.43)
[2023-09-30 13:15] LABS: BLOOD UREA NITROGEN,BUN 29 mg/dL (7-18); BUN/CREATININE RATIO 20.7 (9-20); CALCIUM 9.6 mg/dL (8.6-10.2); CARBON DIOXIDE,CO2 34 mmol/L (21-32); CHLORIDE,CL 101 mmol/L (100-110); CREATININE 1.4 mg/dL (0.70-1.30); EST CRCL DRUG DOSING (CG) 40.04 mL/min; ESTIMATED GFR 50 mL/min (>60); GLUCOSE RANDOM 119 mg/dL (80-116); POTASSIUM,K 3.8 mmol/L (3.5-5.3); SODIUM,NA 139 mmol/L (135-145)
[2023-09-30 13:18] LABS: TROPONIN I 22.2 pg/mL (4.0-60.3)
[2023-09-30 13:21] LABS: LYMPHOCYTES PERCENT MAN 14 % (13-37); MONOCYTES PERCENT MAN 7 % (4-12); SEG NEUTROPHILS PERCENT MAN 79 % (46-82)
[2023-09-30 13:22] LABS: C-REACTIVE PROTEIN 3.07 mg/dL (<0.50)
[2023-09-30 13:27] LABS: A/G RATIO 0.7; ALANINE AMINOTRANSFERASE,ALT 40 U/L (12-36); ALBUMIN 3.2 g/dL (3.2-4.6); ALKALINE PHOSPHATASE 49 IU/L (56-112); ASPARTATE AMNIOTRANSFERASE,AST 28 IU/L (5-25); BILIRUBIN TOTAL 0.4 mg/dL (0.1-1.3); PROTEIN TOTAL,TP 7.5 g/dL (6.0-8.0)
[2023-09-30 16:53] VITALS: BP 133/62; PULSE 85
== END 2023-09-30 16:23 | disposition home or self-care (01) ==
LOC: FB.ED 10:40
DX: I11.0 Hypertensive heart disease with heart failure (principal); I50.42 Chronic combined systolic (congestive) and diastolic (congestive) heart failure; J44.9 Chronic obstructive pulmonary disease, unspecified; E78.00 Pure hypercholesterolemia, unspecified; I25.810 Atherosclerosis of coronary artery bypass graft(s) without angina pectoris; K21.9 Gastro-esophageal reflux disease without esophagitis; E11.9 Type 2 diabetes mellitus without complications; Z86.16 Personal history of COVID-19; Z79.84 Long term (current) use of oral hypoglycemic drugs; Z79.82 Long term (current) use of aspirin; Z79.899 Other long term (current) drug therapy; Z95.5 Presence of coronary angioplasty implant and graft
CPT/HCPCS: 36415; 71045; 71045-RT; 80053; 83880; 84484; 85025; 85379; 86140; 93005; 99285